=== PATIENT | female | born 1965 | race Caucasian/White ===

== ENCOUNTER 2022-04-30 14:27 | Emergency (ER) | payer OTHER ==
[~2022-04-30] VITALS: Ht 154.9 cm; Wt 104.3 kg
[2022-04-30] MEDS ORDERED: IV NORMAL SALINE 500 ML BAG IV ONE (14:45)
[2022-04-30] MEDS ORDERED: MORPHINE SULFATE 4 MG/1 ML DISP.SYRIN IV ONE (14:45)
[2022-04-30 14:48] LABS: HEMATOCRIT 39.6 % (31.2-41.9); MEAN CORPUSCULAR HEMOGLOBIN 27.9 uug (24.7-32.8); MEAN CORPUSCULAR VOLUME 85.1 fL (75.5-95.3); PLATELET COUNT (AUTO) 243 K/uL (179-408)
[2022-04-30 15:01] LABS: BILIRUBIN,TOTAL 0.4 mg/dL (0.2-1.0); CREATININE 0.9 mg/dL (0.6-1.3); TOTAL PROTEIN, SERUM 8.4 g/dL (6.4-8.2)
[2022-04-30] MEDS ORDERED: MORPHINE SULFATE 4 MG/1 ML DISP.SYRIN ONE (15:10)
[2022-04-30] MEDS ORDERED: IV NORMAL SALINE 250 ML IV ONE (15:20)
[2022-04-30] MEDS ORDERED: SWABABLE VALVE TRANSFER SET EA MC ONE (15:20)
[2022-04-30] MEDS ORDERED: IOHEXOL 300MG/ML 100 ML INFUS..BTL ONE (15:20)
--- NOTE | 2022-04-30 15:29 | NUR ---
Received call from lab, Lactic Acid = 2.2. and Geronimo DHALIWAL made aware.
--- NOTE | 2022-04-30 17:43 | NUR ---
Removed IV intact, site okay, bandaged. Gave pt d/c instructions, pt verbalized understanding.
== END 2022-04-30 17:46 | disposition home or self-care (01) ==
LOC: ER 14:27
DX: R10.13 Epigastric pain (principal); R10.10 Upper abdominal pain, unspecified; Z98.84 Bariatric surgery status; E03.9 Hypothyroidism, unspecified; Z91.018 Allergy to other foods; E87.20 Acidosis, unspecified
CPT/HCPCS: 99285; 74177; 96374; 96361; 80053; 82248; 83690; 85025; 85610; 84484; 36415; 93005; 83605 ×2; Q9967; J2270; J7040; A4663